=== PATIENT | male | born 1955 | race Caucasian/White ===

== ENCOUNTER 2023-04-11 18:15 | Emergency (ER) | payer MEDICARE, SELFPAY ==
[2023-04-11 18:21] VITALS: BP 176/84
[2023-04-11 18:34] LABS: % Basophils 0.5 % (0-2); % Eosinophils 1.4 % (0-6); % Immature Granulocytes 0.1 % (0-0.5); % Lymphocytes 15.7 % (20.5-51.1); % Monocytes 6.5 % (1.7-9.3); % Neutrophils 75.8 % (42.2-75.2); Absolute Eosinophils 0.1 10^3/uL (0-0.7); Absolute Lymphocytes 1.2 10^3/uL (1.2-3.4); Absolute Monocytes 0.5 10^3/uL (0.1-0.6); Hematocrit 35.9 % (39.0-52.0); Hemoglobin 12.3 g/dL (13.0-18.0); Mean Corp Hgb Conc. 34.3 g/dL (33.0-37.0); Mean Corpuscular Hgb 29.7 pg (27.0-31.0); Mean Corpuscular Volume 86.7 fL (80.0-94.0); Mean Platelet Volume 12.7 fL (7.4-10.4); Nucleated Red Blood Cells % 0 % (-); Platelet Count 129 10^3/uL (130-400); Red Blood Cell Count 4.14 10^6/uL (4.70-6.10); White Blood Cell Count 7.9 10^3/uL (4.8-10.8)
[2023-04-11 18:59] LABS: Troponin I 0.029 ng/ml
[2023-04-11 19:12] LABS: ALT (SGPT) 19 U/L (0-50); AST (SGOT) 25 U/L (17-59); Albumin 3.5 g/dl (3.5-5.0); Alkaline Phosphatase 92 U/L (38-126); Blood Urea Nitrogen 55 mg/dl (9-20); Calcium 10.1 mg/dl (8.4-10.2); Carbon Dioxide 26 mmol/L (22-30); Chloride 104 mmol/L (98-107); Glucose 156 mg/dl (70-99); Potassium 3.9 mmol/L (3.5-5.1); Sodium 140 mmol/L (135-145); Total Bilirubin 0.6 mg/dl (0.2-1.3); eGFR 23.13
[2023-04-11 20:08] VITALS: BP 177/81
[2023-04-11 21:00] VITALS: BP 164/84
[2023-04-11] MEDS: ATIVAN 1 MG PO (21:22)
[2023-04-11 21:55] LABS: COVID-19 Antigen Negative (Negative)
[2023-04-11 22:01] VITALS: BP 176/83
[2023-04-11 22:04] LABS: Troponin I 0.027 ng/ml
[2023-04-11 23:00] VITALS: BP 176/78
--- NOTE | 2023-04-11 23:00 | ED.GENMED ---
History of Present Illness
General
Chief Complaint: Fatigue
Source: patient
Exam Limitations: none
Time Seen by Provider: 04/11/23 20:41
Nursing documentation reviewed up to this point in time: agreed with
Travel History
Have you had any contact with someone who has COVID-19?: No
Do you have any symptoms of coronavirus? Fever > 100 degrees, chills, cough, shortness of breath, sore throat, loss of taste or smell, muscle aches, or headache?: No
History of Present Illness
History of Present Illness:
see mdm
Past History
Past History
ED Past Medical History: Arrthythmia (Atrial fib), Cancer (Kidney CA, Melanoma), CHF, HTN, Hypercholesterolemia, IDDM, [place] and Other (PNA, Diverticulitis)
ED Past Surgical History: Cardiac (Bypass), Orthopedic (Left hand surgery), Urological (Partial nephrectomy) and Other ( hernia surgery. Hemorrhoids)
Social History
Tobacco: Non-smoker
Alcohol: None
Drug: None
Personal: Other (Seperated)
Living: with family
Employment: Employed
Family History
Family History: Other
Review of Systems
Review of Systems
Allergies reviewed?: Yes
All Other Systems: Not applicable
Phy Exam
Physical Exam
Physical Exam:
GENERAL: Alert , in no apparent distress
EYE: pupils equal and reactive
NECK: Supple
ENT: o/p clr, mmm.
CARDIAC: Regular rate and rhythm .no significant edema
LUNGS: Clear breath sounds bilaterally, no acute respiratory distress, no wheezes/rales/rhonchi
ABDOMEN: Soft, obese, without focal tenderness, no r/g, no cvat, normal bowel sounds
NEUROLOGICAL: Alert and oriented, no focal neuro deficits
SKIN: Warm and dry, skin intact.
MUSCULOSKELETAL:, well perfused. neg oral's sign
PSYCH: Normal and appropriate interaction.
Course
Orders/Labs/Results
Orders:
Orders
04/11/23 18:16
EKG [Electrocardiogram (*1)] Urgent
Reason for Study: Chest Pain
EKG- Treatment ONCE
04/11/23 18:28
Complete Blood Count/With Diff Urgent
Comprehensive Metabolic Panel Urgent
Troponin I Urgent
04/11/23 21:14
Lorazepam [Ativan] 1 mg PO NOW STA
04/11/23 21:15
CR Chest - 2 Views Urgent
Comment:
Reason For Exam: FATIGUE
04/11/23 21:22
Electrocardiogram (*1) Urgent
Reason for Study: Abdominal Pain
EKG- Treatment ONCE
04/11/23 21:30
COVID-19 Antigen Urgent
Source: Nasal Swab
Troponin I Urgent
Influenza A+B Rapid Molecular Urgent
ZURI Source: Nasal Swab
Specimen Description:
Abnormal Lab Results
04/11/23
18:28
RBC 4.14 L 10^6/uL
(4.70-6.10)
Hgb 12.3 L g/dL
(13.0-18.0)
Hct 35.9 L %
(39.0-52.0)
Plt Count 129 L 10^3/uL
(130-400)
MPV 12.7 H fL
(7.4-10.4)
Neutrophils % 75.8 H %
(42.2-75.2)
Lymphocytes % 15.7 L %
(20.5-51.1)
BUN 55 H mg/dl
(9-20)
Creatinine 2.9 H mg/dL
(0.7-1.3)
Glucose 156 H mg/dl
(70-99)
Total Protein 6.0 L g/dl
(6.3-8.2)
04/11/23 18:28
04/11/23 18:28
Vital Signs
Initial and Last Documented VS:
Initial Vital Signs
Temp Pulse Resp BP Pulse Ox
98.4 F 78 16 176/84 96
04/11/23 18:21 04/11/23 18:21 04/11/23 18:21 04/11/23 18:21 04/11/23 18:21
Last Documented Vital Signs
Temp Pulse Resp BP Pulse Ox
98.4 F 58 18 176/78 94
04/11/23 18:21 04/11/23 23:00 04/11/23 23:00 04/11/23 23:00 04/11/23 23:00
MDM/Problems Addressed
Differential Diagnosis Includes:
acs, flu, covid, pna, renal disease
MDM/Problems Addressed:
68-year-old male afib on eliquis, htn, hld, chf, cabg
here from PCP office for feeling faitgue x 2 days
pt says last week he had a what sounds like a retinal hemorrhage and was treated with a shot in his eye from [facility]
he is doing better, still has floaters but this is expected.
he has had this before, has h/o diabetic retinopathy
has h/o CKD L partial nephrectomy from kidney cancer in the past
says that last week was the eye issue but he is doing fine from that perspective
but the pat 2 days he feels run down, had 1 episode diarrhea, feels no appetite, a little lightheaded
he told triage that he had chest pain bu tdenied to me
he felt liks this all day
went to pcp and was told maybe he was having a heart attack
here pt is mildly hypertensie
he doesn't look toxic but he does look a little run down and is very anxious, shaky
he apparently takes ativan regularly and needs a dose now
otherwise his iexam is unremarkable
lungs clear
no significan edema
no abd tendenress
pt had ekg showing rate controlled a fib no changes
trop x 2 neg
wbc normal
hg 12.3
ckd chronic, bun is usually aorund 50s, and cr is 2.9 which is within his range
he should f/u with his pcp and cards/nephr but do not see obvious cause for his fatigue
pt's flu/covid neg
cxr indep reviewed by me and neg for pna.
d/c home
pt feels comfortable going home.
*Critical Care Note
Total Time (30-74mins, 75-104mins- exclusive of procedures): Not Applicable
ED Attending Note
-
Portions of this chart may have been created with voice recognition software.� Occasional wrong word or��sound alike� substitutions may have occurred due to the inherent limitations of voice recognition software.
Discharge Plan
Departure
Patient Disposition: Home (Routine Discharge)
Date of Disposition: 04/11/23
Time of Disposition: 23:30
Patient with high blood pressure during this ER visit?: Yes
Condition: Fair
Covid-19: Not Applicable
Discharge Problem:
Fatigue
Instructions: Fatigue (DC), BLOOD PRESSURE
Prescriptions:
No Action
amlodipine 10 MG tablet
10 mg PO DAILY
rosuvastatin 20 MG tablet
20 mg PO DAILY
Eliquis 5 mg Tablet
5 mg PO BID 30 Days Qty: 60 0RF
Toujeo SoloStar U-300 Insulin 300 unit/mL (1.5 mL) Insulin Pen
50 unit SC DAILY
chlorthalidone 25 mg Tablet
12.5 mg PO DAILY
isosorbide mononitrate 60 mg Tablet Extended Release 24 Hr
60 mg PO DAILY
hydralazine 100 mg Tablet
100 mg PO TID
vgnagjpihetx-pkrivxaf-qakvms Tablet
1 tab PO DAILY
cholecalciferol (vitamin D3) [Vitamin D3] 125 mcg (5,000 unit) Tablet
1,250 mcg PO WE
furosemide 80 mg tablet
80 mg PO DAILY
lorazepam 1 mg tablet
1 mg PO BID PRN (Reason: anxiety)
Patient Comments:
09/25/2022: last filled 04/12/22, 180 tabs for 90 days from [facility]
terazosin 10 mg capsule
10 mg PO HS
Referrals:
Yas Sanchez, DO [Family Provider] - Follow up in 2-3 days
Activity Restrictions/Additional Instructions:
YOUR BLOOD PRESSURE IS ELEVATED
BUT YOU HAD NO OTHER FINDINGS CONCERNING ON YOUR BLOOD WORK
YOUR EKGS DID NOT SHOW ANY CAUSE FOR CONCERN
YOU HAD 2 NEGATIVE HEART ENZYMES TO SHOW HIPOLITO NOE DID NOT HAVE A HEART ATTACK
YOUR CHEST XRAY DID NOT SHOW ANY SIGN OF PNEUMONIA
YOUR FLU AND COVID WERE NEGATIVE
PLEASE FOLLOW UP WITH YOUR DOCTOR
CONSIDER RETURNING FOR ANY WORSENING SYMPTOMS LIKE SHORTNESS OF BREATH, PASSING OUT, CHEST PAIN, FEVER, URINARY SYPMTOMS, ETC
OTHERWISE FOLLOW UP WITH YOUR DOC TOR AND YOUR NUCLEAR OFFICER.
Interventions
Interventions:
*Risk Screen - Suicide Last Done: 04/11/23 18:21
*General Assessment Last Done: 04/11/23 18:21
*Neglect/Abuse Screening Last Done: 04/11/23 18:21
ED- Fall Risk Assessment Last Done: 04/11/23 20:10
*ED COVID-19 Vaccine History Last Done: 04/11/23 18:21
*Nursing Disposition Last Done: 04/11/23 23:55
Discharge Date and Time
Discharge Date/Time: 04/11/23 23:56
== END 2023-04-11 23:56 | disposition home or self-care (01) ==
LOC: EMR 18:15
PROVIDERS: Physician Assistant; Student in an Organized Health Care Education/Training Program; EMERGENCY PHYSICIAN Emergency Medicine; FAMILY PHYSICIAN Internal Medicine
DX: R53.83 Other fatigue (principal); I48.91 Unspecified atrial fibrillation; I13.0 Hypertensive heart and chronic kidney disease with heart failure and stage 1 through stage 4 chronic kidney disease, or unspecified chronic kidney disease; I50.9 Heart failure, unspecified; E11.22 Type 2 diabetes mellitus with diabetic chronic kidney disease; N18.9 Chronic kidney disease, unspecified; E11.319 Type 2 diabetes mellitus with unspecified diabetic retinopathy without macular edema; E78.00 Pure hypercholesterolemia, unspecified; I25.2 Old myocardial infarction; Z79.01 Long term (current) use of anticoagulants; Z85.528 Personal history of other malignant neoplasm of kidney; Z85.820 Personal history of malignant melanoma of skin; Z87.19 Personal history of other diseases of the digestive system; Z90.5 Acquired absence of kidney; Z95.1 Presence of aortocoronary bypass graft
CPT/HCPCS: 99283; 71046; 80053; 84484; 85025; 87502; 87811; 93005

== ENCOUNTER 2023-06-20 20:51 | Emergency (ER) | payer MEDICARE, SELFPAY ==
[2023-06-20 20:54] VITALS: BP 151/81
[2023-06-20 21:16] LABS: % Basophils 0.6 % (0-2); % Eosinophils 3.3 % (0-6); % Immature Granulocytes 0.6 % (0-0.5); % Lymphocytes 18.8 % (20.5-51.1); % Monocytes 7.3 % (1.7-9.3); % Neutrophils 69.4 % (42.2-75.2); Absolute Eosinophils 0.2 10^3/uL (0-0.7); Absolute Lymphocytes 1.3 10^3/uL (1.2-3.4); Absolute Monocytes 0.5 10^3/uL (0.1-0.6); Absolute Neutrophils 4.7 10^3/uL (1.4-6.5); Hematocrit 33.7 % (39.0-52.0); Hemoglobin 11.6 g/dL (13.0-18.0); Mean Corp Hgb Conc. 34.4 g/dL (33.0-37.0); Mean Corpuscular Hgb 30.1 pg (27.0-31.0); Mean Corpuscular Volume 87.3 fL (80.0-94.0); Mean Platelet Volume 12.2 fL (7.4-10.4); Nucleated Red Blood Cells % 0 % (-); Platelet Count 126 10^3/uL (130-400); Red Blood Cell Count 3.86 10^6/uL (4.70-6.10); Red Cell Dist. Width 13.7 % (11.5-14.5); White Blood Cell Count 6.7 10^3/uL (4.8-10.8)
[2023-06-20 21:51] LABS: ALT (SGPT) 17 U/L (0-50); AST (SGOT) 23 U/L (17-59); Albumin 3.6 g/dl (3.5-5.0); Alkaline Phosphatase 81 U/L (38-126); Blood Urea Nitrogen 53 mg/dl (9-20); Calcium 10.2 mg/dl (8.4-10.2); Carbon Dioxide 23 mmol/L (22-30); Chloride 106 mmol/L (98-107); Glucose 156 mg/dl (70-99); Potassium 4.1 mmol/L (3.5-5.1); Sodium 140 mmol/L (135-145); Total Bilirubin 0.6 mg/dl (0.2-1.3); Total Protein 6.2 g/dl (6.3-8.2); eGFR 24.13
--- NOTE | 2023-06-21 01:04 | ED.MUSCINJ ---
HPI-Injury
<PAULINE Brito - Last Filed: 06/21/23 06:52>
General
Chief Complaint: Musculo-Skeletal Complaint
Source: patient
Exam Limitations: none
Time Seen by Provider: 06/21/23 00:33
Nursing documentation reviewed up to this point in time: agreed with
Travel History
Have you had any contact with someone who has COVID-19?: No
Do you have any symptoms of coronavirus? Fever > 100 degrees, chills, cough, shortness of breath, sore throat, loss of taste or smell, muscle aches, or headache?: No
History of Present Illness-Injury
Is this injury a work related problem?: No
Is pt an associate of [facility]?: No
Initial Injury comments:
This is a 68 year old male with history of afib on Eliquis, CHF, HTN, HLD, [place] who presents to the ED with complaint of right upper arm pain x5 months. He states his pain is intermittent and worse with movement. He states when he leans on his right
elbow he develops increased pain with the right upper arm. His PCP ordered a right shoulder xray which was unremarkable. He denies any numbness/tingling. He denies any known trauma or injury. He denies any recent strenuous exercise or heavy lifting.
Patient also complains of left hip pain that radiates to his left leg x5 months. He states this pain is intermittent and mild. He does admit sleeping on his left side.
His daughter who accompanies him is concerned for his low pulse rate at home that was in the 40s. He states he was checking his blood pressure and O2 when he noticed his heart rate. He does not feel fatigued, lightheaded, chest pain, SOB, or
headaches. He takes an Lorazepam daily.
Past History
<PAULINE Brito - Last Filed: 06/21/23 06:52>
Past History
ED Past Medical History: Arrthythmia (Atrial fib), Cancer (Kidney CA, Melanoma), CHF, HTN, Hypercholesterolemia, IDDM, [place] and Other (PNA, Diverticulitis)
ED Past Surgical History: Cardiac (Bypass), Orthopedic (Left hand surgery), Urological (Partial nephrectomy) and Other ( hernia surgery. Hemorrhoids)
Social History
Tobacco: Non-smoker
Alcohol: None
Drug: None
Personal: Other (Seperated)
Living: with family
Employment: Employed
Family History
Family History: Other
Review of Systems
<PAULINE Brito - Last Filed: 06/21/23 06:52>
Review of Systems
Allergies reviewed?: Yes
All Other Systems: Not applicable
Constitutional: Reports no symptoms
EENT: Reports no symptoms
Respiratory: Reports no symptoms
Cardiac: Reports no symptoms
ABD/GI: Reports no symptoms
: Reports no symptoms
Musculoskeletal: Reports muscle pain (Right upper extremity) and other (Left hip pain )
Skin: Reports no symptoms
Neurological: Reports no symptoms
Endocrine: Reports no symptoms
Hematologic/Lymphatic: Reports no symptoms
Psychiatric: Reports no symptoms
Phy Exam
<PAULINE Brito - Last Filed: 06/21/23 06:52>
General Physical Exam
General Presentation: well appearing and no apparent distress
General Skin: warm and dry
General Habitus: normal
General Mental: alert
General Hydration: appears well hydrated
ENT Exam
ENT Exam: EOMI, pharynx normal, neck supple and normocephalic
Eye Exam
Eye Exam: PERRL, cornea clear and conjunctiva normal
Cardiovascular Exam
Cardiovascular Exam: regular rate/rhythm, no edema, no murmur and normal peripheral pulses
Pulmonary Exam
Pulmonary Exam: lungs clear, no respiratory distress, no rales, no crackles, no rhonchi, no stridor, no wheezing and no cough
Gastrointestinal Exam
Gastrointestinal Exam: normal bowel sounds, non tender, soft, no organomegaly, no pulsatile mass and non distended
Neurological Exam
Neurological Exam: alert, oriented x3, no motor deficits and speech normal
Musculoskeletal Exam
Musculoskeletal Exam: full ROM, no edema and other (TTP RUE)
Skin Exam
Skin Exam: normal color, warm/dry, no rash and no petechia
Psychiatric Exam
Psychiatric Exam: normal mood/affect
Injury Course
<PAULINE Brito - Last Filed: 06/21/23 06:52>
Orders/Labs/Results
Orders:
Orders
06/20/23 21:00
EKG [Electrocardiogram (*1)] Urgent
Reason for Study: Bradycardia / Tachycardia
EKG- Treatment ONCE
06/20/23 21:09
Complete Blood Count/With Diff Urgent
Comprehensive Metabolic Panel Urgent
06/21/23 01:42
Vital Signs- Treatment ONCE
Frequency: Once
06/21/23 02:23
Cyclobenzaprine HCl [Flexeril] 10 mg PO NOW STA
Abnormal Lab Results
06/20/23
21:09
RBC 3.86 L 10^6/uL
(4.70-6.10)
Hgb 11.6 L g/dL
(13.0-18.0)
Hct 33.7 L %
(39.0-52.0)
Plt Count 126 L 10^3/uL
(130-400)
MPV 12.2 H fL
(7.4-10.4)
Immature Gran % 0.6 H %
(0-0.5)
Lymphocytes % 18.8 L %
(20.5-51.1)
BUN 53 H mg/dl
(9-20)
Creatinine 2.8 H mg/dL
(0.7-1.3)
Glucose 156 H mg/dl
(70-99)
Total Protein 6.2 L g/dl
(6.3-8.2)
06/20/23 21:09
06/20/23 21:09
<Escobar Power, DO - Last Filed: 06/21/23 02:28>
Orders/Labs/Results
Orders:
Orders
06/20/23 21:00
EKG [Electrocardiogram (*1)] Urgent
Reason for Study: Bradycardia / Tachycardia
EKG- Treatment ONCE
06/20/23 21:09
Complete Blood Count/With Diff Urgent
Comprehensive Metabolic Panel Urgent
06/21/23 01:42
Vital Signs- Treatment ONCE
Frequency: Once
06/21/23 02:23
Cyclobenzaprine HCl [Flexeril] 10 mg PO NOW STA
Abnormal Lab Results
06/20/23
21:09
RBC 3.86 L 10^6/uL
(4.70-6.10)
Hgb 11.6 L g/dL
(13.0-18.0)
Hct 33.7 L %
(39.0-52.0)
Plt Count 126 L 10^3/uL
(130-400)
MPV 12.2 H fL
(7.4-10.4)
Immature Gran % 0.6 H %
(0-0.5)
Lymphocytes % 18.8 L %
(20.5-51.1)
BUN 53 H mg/dl
(9-20)
Creatinine 2.8 H mg/dL
(0.7-1.3)
Glucose 156 H mg/dl
(70-99)
Total Protein 6.2 L g/dl
(6.3-8.2)
05/02/24 21:09
06/20/23 21:09
<PAULINE Brito - Last Filed: 06/21/23 06:52>
MDM/Problems Addressed
Differential Diagnosis Includes:
Biceps tendonitis/tear/sprain
<PAULINE Brito - Last Filed: 06/21/23 06:52>
*Critical Care Note
Total Time (30-74mins, 75-104mins- exclusive of procedures): Not Applicable
ED Attending Note
<PAULINE Brito - Last Filed: 06/21/23 06:52>
-
Portions of this chart may have been created with voice recognition software.� Occasional wrong word or��sound alike� substitutions may have occurred due to the inherent limitations of voice recognition software.
<Escobar Power DO - Last Filed: 06/21/23 02:28>
ED Attending Note
Patient seen and examined by attending physician: Yes
I performed the substantive portion of visit, reviewed & personally made and approve the management plan that is documented in note by myself or IAN.: Yes
ED Attending Note:
Pleasant 68-year-old male who presents with right arm pain. He states has been going on for 6 months but worsened over the last few nights. He was seen by his primary care provider and had a normal x-ray. Has been seen by rheumatology for this
issue as well as had a chiropractic adjustment last week. He states that chiropractor did help. He takes Tylenol 3 which seems to help with the symptoms. Patient has been having bilateral leg and hip pain on the left for the same amount of time.
Denies fever, chills, nausea or vomiting. Patient was seen in conjunction with the PA student. I have reviewed and agree with the history and treatment plan presented. On my independent physical exam, patient is awake, alert, and oriented x3, no
acute distress while at rest. Focused physical exam right arm. He does have muscle atony y in the bicep. Pain is reproduced with adduction. Supination and pronation do not influence the pain. He does have right-sided paraspinal musculature
tenderness to palpation in the neck. Good distal pulses. I feel that this is musculoskeletal. Will try Flexeril with Ortho follow-up.
Discharge Plan
Departure
Patient Disposition: Home (Routine Discharge)
Date of Disposition: 06/21/23
Time of Disposition: 02:26
Patient with high blood pressure during this ER visit?: Yes
Condition: Good
Discharge Problem:
Musculoskeletal arm pain
Instructions: Muscle and Bone Pain (DC), BLOOD PRESSURE
Prescriptions:
New
cyclobenzaprine 5 mg tablet
5 mg PO HS Qty: 10 0RF
No Action
amlodipine 10 MG tablet
10 mg PO DAILY
rosuvastatin 20 MG tablet
20 mg PO DAILY
Eliquis 5 mg Tablet
5 mg PO BID 30 Days Qty: 60 0RF
Toujeo SoloStar U-300 Insulin 300 unit/mL (1.5 mL) Insulin Pen
50 unit SC DAILY
chlorthalidone 25 mg Tablet
12.5 mg PO DAILY
isosorbide mononitrate 60 mg Tablet Extended Release 24 Hr
60 mg PO DAILY
hydralazine 100 mg Tablet
100 mg PO TID
utxmpbjxfrdo-kfpndqan-xvpnae Tablet
1 tab PO DAILY
cholecalciferol (vitamin D3) [Vitamin D3] 125 mcg (5,000 unit) Tablet
1,250 mcg PO WE
furosemide 80 mg tablet
80 mg PO DAILY
lorazepam 1 mg tablet
1 mg PO BID PRN (Reason: anxiety)
Patient Comments:
09/25/2022: last filled 04/12/22, 180 tabs for 90 days from [facility]
terazosin 10 mg capsule
10 mg PO HS
Referrals:
[facility] [Provider [facility]] - Next open appointment
Yas Sanchez DO [Family Provider] -
Activity Restrictions/Additional Instructions:
It was a pleasure meeting you and taking part in your care. We hope for your continued healing and wellness.
Please read discharge instructions in their entirety. However, they are for general education and may not describe your exact diagnosis at discharge. Information on your ER visit and medical conditions were discussed with you along with appropriate
follow up information...
If indicated, please take your medications as instructed and indicated on discharge paperwork.
Please schedule a follow up appointment as directed. Call to schedule an appointment
Please return to the emergency department with ANY change in, persisting, or worsening of symptoms. If any of your symptoms do not improve, or persist, or become more severe within 6-12 hours, please return to the emergency department for further
care.
Please return to the emergency department if you develop a headache, neck pain/stiffness, fever greater than 100.4F, chest pain, shortness of breath, persistent nausea, vomiting, slurred speech, difficulty walking, numbness/tingling, weakness, signs
of infection or any other symptoms that are worrisome to you.
If you have any questions or concerns please do not hesitate to call the Hospital at or E-mail me directly at [email or web address]
Interventions
Interventions:
*Risk Screen - Suicide Last Done: 06/20/23 20:55
*General Assessment Last Done: 06/20/23 20:55
*Neglect/Abuse Screening Last Done: 06/20/23 20:55
ED- Fall Risk Assessment Last Done: 06/21/23 01:52
*ED COVID-19 Vaccine History Last Done: 06/20/23 20:55
*Nursing Disposition Last Done: 06/21/23 02:36
ED-Musculoskeletal Assessment Last Done: 06/21/23 01:52
Discharge Date and Time
Discharge Date/Time: 06/21/23 02:37
Print Language: [place]
[2023-06-21 01:51] VITALS: BP 154/88
[2023-06-21] MEDS: FLEXERIL 10 MG PO (02:33)
== END 2023-06-21 02:37 | disposition home or self-care (01) ==
LOC: EMR 20:51
PROVIDERS: Emergency Medicine; EMERGENCY PHYSICIAN Student in an Organized Health Care Education/Training Program; FAMILY PHYSICIAN Internal Medicine
DX: M79.621 Pain in right upper arm (principal); I11.0 Hypertensive heart disease with heart failure; I50.9 Heart failure, unspecified; E11.9 Type 2 diabetes mellitus without complications; E78.00 Pure hypercholesterolemia, unspecified; I48.91 Unspecified atrial fibrillation; Z79.01 Long term (current) use of anticoagulants
CPT/HCPCS: 99284; 80053; 85025; 93005